=== PATIENT | male | born 1995 | race African-American/Black ===

== ENCOUNTER 2016-11-20 11:21 | Emergency (ER) | payer OTHER ==
[~2016-11-20] VITALS: Ht 170.2 cm; Wt 65.8 kg
[2016-11-20 11:30] VITALS: BP 125/88; PULSE 68; TEMP 36.7; O2SAT 100; Ht 170.2 cm; Wt 65.8 kg
--- NOTE | 2016-11-20 11:52 | EMERGENCY ROOM VISIT NOTE ---
ED Visit Note First contact with patient: 11:33 CHIEF COMPLAINT: Right eye irritation and redness and drainage. HISTORY OF PRESENT ILLNESS: 21-year-old male presents the ER with chief complaint of right eye redness and drainage. The patient denies any trauma to the eye and does not wear contacts. 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 The patient also admits that he had a corneal abrasion earlier this year and this feels similar. REVIEW OF SYSTEMS:6 system review was performed and was negative unless stated otherwise in history of present illness. PMH: The patient is healthy; there is no significant medical or surgical history. SOCIAL HISTORY: Patient admits to smoking but denies any tobacco use PHYSICAL EXAM: Vital Signs: Were reviewed Reviewed Nurse's notes. GENERAL: This is a healthy-appearing person who is uncomfortable from the eye problem. MENTAL Status: Alert and oriented 3. EYES: The pupils are round, equal, and react to light. EOMs are full. There is discharge of clear tears from the right eye which is injected. There is no foreign body visible under athe eyelid even after lid eversion. No foreign body was seen embedded in the cornea. The cornea was clear and no hyphema was seen. Fluorescein uptake was observed with ultraviolet light over the pupil. EMERGENCY DEPARTMENT COURSE: The fluorescein was irrigated away and [place]ox[place] eyedrops are placed into the right eye. DIAGNOSIS: Right Corneal abrasion DISCHARGE INSTRUCTIONS AND TREATMENT: Ibuprofen 600 mg every 6 hours with food for pain. Take [place] as needed for more severe pain. Do not drive while taking the [place]. [place] eyedrops 2 drops into the right eye every 2 hours while awake for 2 days then 2 drops into the right eye every 4 hours while awake for additional 3 days. Return to ER in 2 days for recheck. If symptoms worsen in the interim return earlier. Current/Historical Medications No Active Prescriptions or Reported Meds Allergies Coded Allergies: No Known Allergies (Unverified , 11/20/16) Vital Signs Date Time Temp Pulse Resp B/P (MAP) Pulse Ox O2 Delivery O2 Flow Rate FiO2 11/20/16 11:30 36.7 68 20 125/88 100 Room Air Departure Information Prescriptions No Active Prescriptions or Reported Meds Referrals [facility] [employer] (PCP) Patient Instructions My [facility]
[2016-11-20] MEDS ORDERED: HYDR-5688 PO (11:54)
[2016-11-20] MEDS ORDERED: CIPROFLOXACIN HCL 0.3% OP SOLN 2.5 ML BTL OPR ONE (12:00)
== END 2016-11-20 12:26 | disposition home or self-care (01) ==
LOC: C.EDB 11:23 → C.EDD 12:26
DX: S05.01XA Injury of conjunctiva and corneal abrasion without foreign body, right eye, initial encounter (principal); X58.XXXA Exposure to other specified factors, initial encounter